=== PATIENT | male | born 1985 | race Native Hawaiian/Other Pacific Islander ===

== ENCOUNTER 2022-03-16 15:15 | Emergency (ER) | payer OTHER ==
[~2022-03-16] VITALS: Ht 193 cm; Wt 116.1 kg
[2022-03-16 15:15] VITALS: TEMP 98
[2022-03-16] MEDS ORDERED: NITROSTAT0.4 MG SL (15:31)
[2022-03-16] MEDS ORDERED: GABA300C2 PO (15:31)
[2022-03-16 16:00] LABS: PLATELET COUNT 265 K/uL (142-355)
[2022-03-16 16:04] LABS: POTASSIUM 4.3 mmol/L (3.6-5.2)
[2022-03-16 16:12] LABS: PARTIAL THROMBOPLASTIN TIME 26.2 SECONDS (24.5-33.6)
[2022-03-16 17:00] VITALS: BP 132/81
== END 2022-03-16 17:30 | disposition short-term general hospital (02) ==
LOC: ED 15:15
PROVIDERS: Emergency Medicine Emergency Medical Services
DX: R07.89 Other chest pain (principal); I49.8 Other specified cardiac arrhythmias
CPT/HCPCS: 36415; 80053; 80307; 83735; 84443; 84484; 85027; 85379; 85610; 85730; 93005; 96360; 96372; 96374; 96375; 99284; J1650; J2270; J2405; J3490

== ENCOUNTER 2023-01-22 11:40 | Emergency (ER) | payer OTHER ==
[~2023-01-22] VITALS: Ht 193 cm; Wt 113.4 kg
[~2023-01-22 11:40] MED LIST: GABA300C2 PO; NITROSTAT0.4 MG SL
[2023-01-22 12:50] VITALS: BP 133/91; TEMP 98.6
== END 2023-01-22 12:50 | disposition home or self-care (01) ==
LOC: ED 11:40
DX: K01.1 Impacted teeth (principal); K08.89 Other specified disorders of teeth and supporting structures; K00.6 Disturbances in tooth eruption; F17.210 Nicotine dependence, cigarettes, uncomplicated
CPT/HCPCS: 96372; 99282; J1885